=== PATIENT | female | born 1995 | race Caucasian/White ===

== ENCOUNTER 2017-01-01 10:15 | Emergency (ER) | payer MEDICAID ==
[~2017-01-01] VITALS: Ht 157.5 cm; Wt 70.0 kg
[2017-01-01] MEDS ORDERED: SODIUM CHLORIDE 0.9% 1,000 ML IV ONE (12:13)
[2017-01-01 12:33] LABS: BASOPHILS % 0.4 % (0.0-2.0); EOSINOPHILS % 0.8 % (0.0-5.0); HEMATOCRIT. 40.2 % (36.0-48.0); HEMOGLOBIN. 13.6 g/dL (12.0-16.0); LYMPHOCYTES % 35.5 % (20.0-50.0); MEAN CORPUSCULAR HEMOGLOBIN 28.6 pg (28.0-32.0); MEAN CORPUSCULAR VOLUME 84.8 fL (81.0-99.0); MEAN PLATELET VOLUME 10.3 fl (7.4-10.4); MONOCYTES % 8.2 % (2.0-8.0); NEUTROPHILS % 55.1 % (40.0-76.0); PLATELET 174 x1000/uL (130-400); RED BLOOD CELL COUNT 4.74 mill/uL (4.2-5.4); RED CELL DISTRIBUTION WIDTH 13.1 % (11.6-14.6)
[2017-01-01 12:46] LABS: CARBON DIOXIDE 27 mEq/L (21-32); CHLORIDE 106 mEq/L (98-107)
[2017-01-01 12:48] LABS: PROTHROMBIN TIME 10.4 sec
[2017-01-01] MEDS ORDERED: VISCOUS LIDOCAINE 2% 15 ML UDC PO STA (13:07)
[2017-01-01] MEDS ORDERED: DICYCLOMINE 10 MG/5 ML ORAL SYR PO STA (13:07)
[2017-01-01] MEDS ORDERED: FAMOTIDINE 20MG/2ML VIAL IV STA (13:07)
[2017-01-01] MEDS ORDERED: MAGNESIUM/ALUMINUM HYDROXIDE/SIMETHICONE 30ML UDC PO STA (13:07)
[2017-01-01 13:58] LABS: GLUCOSE URINE NEGATIVE (NEGATIVE); KETONES URINE NEGATIVE (NEGATIVE); LEUKOCYTE ESTERASE URINE NEGATIVE (NEGATIVE); NITRITE URINE NEGATIVE (NEGATIVE); OCCULT BLOOD URINE 3+ (NEGATIVE); PROTEIN URINE NEGATIVE (NEGATIVE); SPECIFIC GRAVITY URINE 1.005 (1.005-1.030); UROBILINOGEN URINE 0.2 E.U./dL (0.2-1.0)
[2017-01-01 14:00] VITALS: BP 110/63
[2017-01-01 14:12] LABS: CLARITY URINE CLOUDY (CLEAR); COLOR URINE RED (YELLOW)
== END 2017-01-01 15:03 | disposition home or self-care (01) ==
LOC: ER 12:09
DX: R10.13 Epigastric pain (principal); R19.7 Diarrhea, unspecified
CPT/HCPCS: 36415; 80053; 81001; 81025; 83690; 85025; 85610; 96361; 96374; 99285; J3490; J7030; Z7610